=== PATIENT | female | born 1985 | race Caucasian/White ===

== ENCOUNTER 2017-12-01 23:47 | Emergency (ER) ==
[2017-12-02 00:03] VITALS: BP 150/89; TEMP 99.6; BMI 43.7
--- NOTE | 2017-12-02 00:17 | DI ---
EXAM: Three views of the right foot. HISTORY: Injury with lateral foot pain. FINDINGS: The bones are intact with no evidence of fracture. The joint spaces are maintained. There is soft tissue swelling in the forefoot. Impression: No evidence of fracture. Soft tissue swelling as described.
--- NOTE | 2017-12-02 00:23 | ED.PDOC ---
General ED Provider: Dr. JUAN HOOD Chief Complaint: Foot Pain/Injury Stated Complaint: Patient complains of right foot pain does not know how she injured it. Time Seen by Physician: 00:21 Mode of Arrival: Walk-In Information Source: Patient Exam Limitations: No limitations Primary Care Provider: MELODY MCKENZIE Nursing and Triage Documentation Reviewed and Agree: Yes Reviewed sepsis parameters & appropriate labs ordered?: No System Inflammatory Response Syndrome: Pulse >90 BPM Sepsis Protocol: For patient's 13 years and over: Temp is 96.8 and below OR 101 and greater Pulse >90 BPM Resp >20/minute Acutely Altered Mental Status Are patient's symptoms suggestive of a new infection, such as: -Pneumonia -Skin, Soft Tissue -Endocarditis -UTI -Bone, Joint Infection -Implantable Device -Acute Abdominal Infection -Wound Infection -Meningitis -Blood Stream Catheter Infection -Unknown System Inflammatory Response Syndrome: Not Applicable Musculoskeletal Complaint Exam - Ankle/Foot Complaint/Exam Location of Injury: Reports: Right, Foot Mechanism of Injury: Reports: No known trauma Onset/Duration: 1 day Symptoms Are: Reports: Still present Initial Severity: Moderate Current Severity: Mild Location: Reports: Discrete (Lateral aspect of foot ) Character: Reports: Aching, Throbbing Alleviating: Reports: None Aggravating: Reports: Movement Able to Bear Weight: Yes Associated Signs and Symptoms: Reports: Swelling Gout Risk Factors: Reports: None Related Surgical History: Reports: None Lower Extremity Findings: Present: Swelling Achilles Tendon Abnormality: No Ankle/Foot Picture: 1 - tenderness to palpation Differential Diagnosis: Sprain, Strain Review of Systems - Review Of Systems Constitutional: Reports: No symptoms Eyes: Reports: No symptoms Ears, Nose, Mouth, Throat: Reports: No symptoms Respiratory: Reports: No symptoms Cardiac: Reports: No symptoms GI: Reports: No symptoms : Reports: No symptoms Musculoskeletal: Reports: Joint pain Skin: Reports: No symptoms Neurological: Reports: Anxiety Endocrine: Reports: No symptoms Hematologic/Lymphatic: Reports: No symptoms All Other Systems: Reviewed and Negative Past Medical History - Past Medical History Previously Healthy: Yes Endocrine: Reports: DM 2 Cardiovascular: Reports: None Respiratory: Reports: Asthma Hematological: Reports: None Gastrointestinal: Reports: None Genitourinary: Reports: None Neuro/Psych: Reports: None, Anxiety, Depression Musculoskeletal: Reports: None Cancer: Reports: None Last Menstrual Period: 3 months - Surgical History General Surgical History: Reports: Tonsillectomy, Adenoidectomy - Family History Family History: Reports: None - Social History Smoking Status: Never smoker Hx Substance Use: No Alcohol Screening: None - Immunizations Tetanus Shot up to Date: Yes Physical Exam - Physical Exam Appearance: Ill-appearing, Obese ENT: Nose normal, Oropharynx normal Musculoskeletal: Limited ROM Skin: Warm Neurological: Sensation intact Psychiatric: Anxious Interpretation - Radiology Interpretation Radiology Interpretation By: Radiologist Radiology Results: Negative Exam Interpreted: Other (right foot x ray ) Critical Care Note - Critical Care Note Total Time (mins): 0 Course - Course Orders, Labs, Meds: Orders Category Date Time Status SIDRA [ED SIDRA WRAP] .ONCE EMERGENCY 12/02/17 00:46 Active ED CRUTCHES .ONCE EMERGENCY 12/02/17 00:46 Active FOOT, RIGHT 3 VIEWS Stat RADS 12/01/17 23:58 Completed Vital Signs: Temp Pulse Resp BP Pulse Ox 12/01/17 23:49 99.6 F 108 H 18 150/89 H 97 Departure - Departure Time of Disposition: 01:12 Disposition: HOME SELF-CARE Discharge Problem: Right foot sprain Qualifiers: Encounter type: initial encounter Qualified Code(s): S93.601A - Unspecified sprain of right foot, initial encounter Instructions: Foot Sprain (ED) Condition: Fair Pt referred to PMD for follow-up: Yes IPMP verified?: No Additional Instructions: Take Ibuprofen every 8 hours as needed for pain Elevate and Ice the foot. Follow up with PCP as needed Allergies/Adverse Reactions: Allergies No Known Allergies Allergy (Unverified 12/02/17 00:01) Home Medications: Ambulatory Orders Albuterol Sulfate [Proair Hfa] 2 puff IH DIRECTED PRN 12/01/17 Cyclobenzaprine HCl 10 mg PO BEDTIME 12/01/17 Glipizide [Glipizide Xl] 10 mg PO BID 12/01/17 Insulin Glargine,Hum.rec.anlog [Lantus] 40 unit SQ DAILY 12/01/17 Norethindrone [Rebecca-Be] 0.35 mg PO DAILY 12/01/17 Omeprazole Magnesium 20 mg PO DAILY 12/01/17 Disposition Discussed With: Patient, Family
== END 2017-12-02 01:00 | disposition home or self-care (01) ==
LOC: ED 23:47
DX: S93.601A Unspecified sprain of right foot, initial encounter (principal); X50.1XXA Overexertion from prolonged static or awkward postures, initial encounter
CPT/HCPCS: 99282

== ENCOUNTER 2018-03-08 15:04 | Outpatient (CLI) ==
--- NOTE | 2018-03-08 17:00 | MRI ---
EXAM: MRI of the right forefoot without contrast COMPARISON: Right foot radiographs 12/01/2017. HISTORY: Pain along the top of the foot. No recent injury. TECHNIQUE: Multiplanar noncontrast MR images of the right midfoot and forefoot were acquired using a 1.2 Shirley magnet. FINDINGS: There is mild degenerative spurring at the first metatarsophalangeal joint. Minimal degen erative spurring at the interphalangeal joints. Mild degenerative changes of the tarsometatarsal elvia nts with small dorsal osteophytes. Mild degenerative changes at the navicular cuneiform and talonavi cular joints. 3 mm accessory navicular. There is no evidence of an acute fracture or osteomyelitis. There are gel capsules indicating the site of clinical concern along the dorsal aspect of the mid arianna t. There is subcutaneous edema and ill-defined subcutaneous fluid at that level without a focal soft tissue ulcer or drainable fluid collection. No discrete soft tissue mass. Intact Lisfranc ligament fibers are identified without abnormal subluxation at the tarsometatarsal joints. No full-thickness tendon tear or tendon retraction. Small metatarsophalangeal joint effusions. Inte rmetatarsal bursitis involving the third interspace at the level of the metatarsophalangeal joints wi th less pronounced intermetatarsal bursitis along the distal first and second interspaces. IMPRESSION: 1. Subcutaneous edema and ill-defined subcutaneous fluid dorsally without a drainable fluid collecti on or discrete soft tissue mass. 2. No acute osseous injury. Mild degenerative changes of the forefoot and midfoot. 3. Intermetatarsal bursitis. Small metatarsophalangeal joint effusions.
== END 2018-03-08 15:05 | disposition home or self-care (01) ==
LOC: RAD 15:04
PROVIDERS: ATTEND Family Medicine
DX: M79.671 Pain in right foot (principal)

== ENCOUNTER 2018-11-09 11:41 | Emergency (ER) ==
[2018-11-09 11:44] VITALS: BP 143/122; TEMP 97.7; BMI 42.1
--- NOTE | 2018-11-09 12:54 | ED.PDOC ---
General ED Provider: Dr. MELODY KRUSE Chief Complaint: Fever Stated Complaint: Vomiting X 4 days Time Seen by Physician: 12:35 Mode of Arrival: Walk-In Information Source: Patient Exam Limitations: No limitations Primary Care Provider: MELODY MCKENZIE Nursing and Triage Documentation Reviewed and Agree: Yes Does patient meet sepsis criteria?: No System Inflammatory Response Syndrome: Not Applicable Sepsis Protocol: For patient's 13 years and over: Temp is 96.8 and below OR 101 and greater Pulse >90 BPM Resp >20/minute Acutely Altered Mental Status Are patient's symptoms suggestive of a new infection, such as: -Pneumonia -Skin, Soft Tissue -Endocarditis -UTI -Bone, Joint Infection -Implantable Device -Acute Abdominal Infection -Wound Infection -Meningitis -Blood Stream Catheter Infection -Unknown GI Complaint Exam - Vomiting/Diarrhea Complaint/Exam Onset/Duration: 4 days Symptoms Are: Still present Episodes of Vomiting over last 24 Hours: 5 Episodes of Diarrhea Over Last 24 Hours: 0 Initial Severity: Moderate Current Severity: Moderate Character of Vomiting: Reports: Bilious Aggravating: Reports: Liquids Alleviating: Reports: None Associated Signs and Symptoms: Reports: Dizziness, Light-headedness, Cramping Surgical Obstruction Risk Factors: Reports: None Related Surgical History: Reports: None Abdominal Findings: Present: Other (tenderness-non focal) Kussmaul Respirations Present: No Differential Diagnoses: Dehydration, Gastritis, Viral Gastroenteritis, UTI Review of Systems - Review Of Systems Constitutional: Reports: Chills, Weakness Eyes: Reports: No symptoms Ears, Nose, Mouth, Throat: Reports: No symptoms Respiratory: Reports: No symptoms, Cough Cardiac: Reports: No symptoms GI: Reports: Poor appetite, Poor fluid intake, Vomiting : Reports: No symptoms Musculoskeletal: Reports: No symptoms Skin: Reports: No symptoms Neurological: Reports: No symptoms Endocrine: Reports: No symptoms Hematologic/Lymphatic: Reports: No symptoms All Other Systems: Reviewed and Negative Past Medical History - Past Medical History Previously Healthy: Yes Endocrine: Reports: DM 2 Cardiovascular: Reports: None Respiratory: Reports: Asthma Hematological: Reports: None Gastrointestinal: Reports: None Genitourinary: Reports: None Neuro/Psych: Reports: None, Anxiety, Depression Musculoskeletal: Reports: None Cancer: Reports: None Last Menstrual Period: IRREGULAR - Surgical History General Surgical History: Reports: Tonsillectomy, Adenoidectomy - Family History Family History: Reports: None - Social History Smoking Status: Never smoker Hx Substance Use: No Alcohol Screening: None - Immunizations Tetanus Shot up to Date: No Physical Exam - Physical Exam Appearance: Ill-appearing, No pain distress, Well-nourished, Obese Ill-appearing: Mild Pain Distress: Mild Eyes: TIFF, EOMI, Conjunctiva clear ENT: Ears normal, Nose normal, Oropharynx normal Respiratory: Airway patent, Breath sounds clear, Breath sounds equal, Respirations nonlabored Cardiovascular: RRR, Pulses normal, No rub, No murmur GI/: Soft, No masses, Bowel sounds normal, No Organomegaly, Tender (no guarding) Musculoskeletal: Normal strength, ROM intact, No edema, No calf tenderness Skin: Warm, Dry, Normal color Neurological: Sensation intact, Motor intact, Reflexes intact, Cranial nerves intact, Alert, Oriented Psychiatric: Affect appropriate, Mood appropriate Critical Care Note - Critical Care Note Total Time (mins): 60 Course - Course Hematology/Chemistry: 11/09/18 13:13 11/09/18 13:13 Orders, Labs, Meds: Lab Review 11/09/18 11/09/18 11/09/18 13:13 13:13 13:13 WBC 7.70 RBC 5.26 Hgb 14.0 Hct 41.7 MCV 79.3 L MCH 26.6 L MCHC 33.6 RDW Coeff of Baljit 15.2 H Plt Count 215 Immature Gran % (Auto) 0.4 Neut % (Auto) 62.9 Lymph % (Auto) 28.8 Chaves % (Auto) 5.6 Eos % (Auto) 1.9 Baso % (Auto) 0.4 Immature Gran # (Auto) 0.0 Neut # (Auto) 4.8 Lymph # (Auto) 2.2 Chaves # (Auto) 0.4 Eos # (Auto) 0.2 Baso # (Auto) 0.0 Sodium 141.3 Potassium 3.54 Chloride 101.7 Carbon Dioxide 29.6 Anion Gap 13.54 BUN 11.9 Creatinine 0.70 Estimated GFR (MDRD) 98.00 BUN/Creatinine Ratio 17.00 Glucose 186.2 H Hemoglobin A1c 9.34 H Calcium 9.31 Magnesium 1.92 Total Bilirubin 0.65 AST 49.8 H ALT 57.2 H Alkaline Phosphatase 66.8 Total Protein 7.24 Albumin 4.11 Globulin 3.13 Albumin/Globulin Ratio 1.31 Lipase 59.0 Urine Color Urine Clarity Urine pH Ur Specific [place] Urine Protein Urine Glucose (UA) Urine Ketones Urine Blood Urine Nitrite Urine Bilirubin Urine Urobilinogen Ur Leukocyte Esterase Urine Microscopic RBC Ur Squamous Epith Cells Urine Bacteria Urine Test Influ A Molecular Assay Influ B Molecular Assay RSV Antigen 11/09/18 11/09/18 11/09/18 13:35 13:35 15:00 WBC RBC Hgb Hct MCV MCH MCHC RDW Coeff of Baljit Plt Count Immature Gran % (Auto) Neut % (Auto) Lymph % (Auto) Chaves % (Auto) Eos % (Auto) Baso % (Auto) Immature Gran # (Auto) Neut # (Auto) Lymph # (Auto) Chaves # (Auto) Eos # (Auto) Baso # (Auto) Sodium Potassium Chloride Carbon Dioxide Anion Gap BUN Creatinine Estimated GFR (MDRD) BUN/Creatinine Ratio Glucose Hemoglobin A1c Calcium Magnesium Total Bilirubin AST ALT Alkaline Phosphatase Total Protein Albumin Globulin Albumin/Globulin Ratio Lipase Urine Color Yellow Urine Clarity Clear Urine pH 6.0 Ur Specific [place] 1.020 Urine Protein Negative Urine Glucose (UA) Negative Urine Ketones 1+ Urine Blood Trace-lysed Urine Nitrite Negative Urine Bilirubin Negative Urine Urobilinogen 1.0 Ur Leukocyte Esterase Negative Urine Microscopic RBC 0-2 Ur Squamous Epith Cells 0-2 Urine Bacteria Trace Urine Test Influ A Molecular Assay Negative by naat Influ B Molecular Assay Negative by naat RSV Antigen Negative by naat 11/09/18 15:00 WBC RBC Hgb Hct MCV MCH MCHC RDW Coeff of Baljit Plt Count Immature Gran % (Auto) Neut % (Auto) Lymph % (Auto) Chaves % (Auto) Eos % (Auto) Baso % (Auto) Immature Gran # (Auto) Neut # (Auto) Lymph # (Auto) Chaves # (Auto) Eos # (Auto) Baso # (Auto) Sodium Potassium Chloride Carbon Dioxide Anion Gap BUN Creatinine Estimated GFR (MDRD) BUN/Creatinine Ratio Glucose Hemoglobin A1c Calcium Magnesium Total Bilirubin AST ALT Alkaline Phosphatase Total Protein Albumin Globulin Albumin/Globulin Ratio Lipase Urine Color Urine Clarity Urine pH Ur Specific [place] Urine Protein Urine Glucose (UA) Urine Ketones Urine Blood Urine Nitrite Urine Bilirubin Urine Urobilinogen Ur Leukocyte Esterase Urine Microscopic RBC Ur Squamous Epith Cells Urine Bacteria Urine Test Negative Influ A Molecular Assay Influ B Molecular Assay RSV Antigen Orders Category Date Time Status NPO REMINDER: IMAGING ONCE CARE 11/09/18 14:52 Completed IV [ED IV/MEDIPORT/POWERPORT] .ONCE EMERGENCY 11/09/18 12:45 Completed CBC W/ AUTO DIFF Stat LAB 11/09/18 13:13 Completed CMP [COMPREHENSIVE METABOLIC PANEL] Stat LAB 11/09/18 13:13 Completed FLU A & B MOLECULAR [FLU A/B MOLECULAR] Stat LAB 11/09/18 13:35 Completed HEMOGLOBIN A1C Stat LAB 11/09/18 13:13 Completed LIPASE Stat LAB 11/09/18 13:13 Completed MAGNESIUM Stat LAB 11/09/18 13:13 Completed RAPID STREP SCREEN [MOLECULAR GROUP A STREP] Stat LAB 11/09/18 13:35 Completed RSV Stat LAB 11/09/18 13:35 Completed UA [URINALYSIS C & S IF INDICATED] Stat LAB 11/09/18 15:00 Completed URINE Stat LAB 11/09/18 15:00 Completed 0.9 % Sodium Chloride [Saline Flush] MEDS 11/09/18 12:45 Active 1 syr IVF PRN PRN Ondansetron HCl/Pf [Zofran 4 mg/2 ml] MEDS 11/09/18 13:43 Discontinued 4 mg IM ONCE STA Ondansetron HCl/Pf [Zofran 4 mg/2 ml] MEDS 11/09/18 12:48 Discontinued 4 mg IVP ONCE STA Promethazine HCl [Phenergan 25 mg/ml Vial] MEDS 11/09/18 14:52 Discontinued 25 mg IM ONCE STA Sodium Chloride 0.9% [Sodium Chloride] 1,000 ml MEDS 11/09/18 12:47 Discontinued IV BOLUS U/S ABDOMEN RT UPPER QUAD Stat RADS 11/09/18 14:50 Completed Medications Generic Name Dose Route Start Last Admin Trade Name Freq PRN Reason Stop Dose Admin Sodium Chloride 1 syr 11/09/18 12:45 Saline Flush IVF PRN PRN To flush IV Discontinued Medications Generic Name Dose Route Start Last Admin Trade Name Freq PRN Reason Stop Dose Admin Sodium Chloride 1,000 mls @ 1,000 mls/hr 11/09/18 12:47 11/09/18 13:48 Sodium Chloride IV 11/09/18 13:46 Not Given BOLUS STA Ondansetron HCl 4 mg 11/09/18 12:48 11/09/18 13:51 Zofran 4 Mg/2 Ml IVP 11/09/18 12:49 Not Given ONCE STA Ondansetron HCl 4 mg 11/09/18 13:43 11/09/18 13:51 Zofran 4 Mg/2 Ml IM 11/09/18 13:44 4 mg ONCE STA Administration Promethazine HCl 25 mg 11/09/18 14:52 11/09/18 15:18 Phenergan 25 Mg/Ml Vial IM 11/09/18 14:53 25 mg ONCE STA Administration Vital Signs: Temp Pulse Resp BP Pulse Ox 11/09/18 11:41 97.7 F 97 H 18 143/122 H 97 Departure - Departure Time of Disposition: 16:45 Disposition: HOME SELF-CARE Discharge Problem: Gastroenteritis, Nonalcoholic hepatosteatosis, Diabetes mellitus Instructions: Gastroenteritis (ED), Non-Alcoholic Fatty Liver Disease (ED) Condition: Fair Pt referred to PMD for follow-up: Yes IPMP verified?: No Additional Instructions: Clear liquid diet and advance as tolerated Rx meds prn nausea -emesis Off work for 2 days Return to ER as needed Allergies/Adverse Reactions: Allergies pineapple Adverse Reaction (Severe, Verified 11/09/18 11:44) Hives Home Medications: Ambulatory Orders Albuterol Sulfate [Proair Hfa] 2 puff IH DIRECTED PRN 12/01/17 Cyclobenzaprine HCl 10 mg PO BEDTIME 12/01/17 Glipizide [Glipizide Xl] 10 mg PO BID 12/01/17 Insulin Glargine,Hum.rec.anlog [Lantus] 40 unit SQ DAILY 12/01/17 Norethindrone [Rebecca-Be] 0.35 mg PO DAILY 12/01/17 Omeprazole Magnesium 20 mg PO DAILY 12/01/17 Promethazine HCl [Phenergan Tab] 25 mg PO Q6H PRN #20 tablet 11/09/18 Additional Information: 1450: Re evaluated. Unable to obtain venous access. Still having nausea and dry heaves Complaining of pain in RUQ-midepigastrium Scheduling Ultrasound and ordering Phenergan
[2018-11-09] MEDS: SODIUM CHLORIDE 1,000 ML IV STA (13:48)
[2018-11-09] MEDS: ZOFRAN 4 MG/2 ML IVP STA (13:51)
[2018-11-09] MEDS: ZOFRAN 4 MG/2 ML IM STA (13:51)
[2018-11-09] MEDS: PHENERGAN 25 MG/ML VIAL IM STA (15:18)
--- NOTE | 2018-11-09 15:32 | US ---
EXAM: Right upper quadrant abdominal ultrasound. History: Right upper quadrant abdominal pain. Technique: Multiple sonographic images through the abdomen were obtained. Color duplex Doppler was used to interrogate vascular flow. Findings: The liver is diffusely echogenic. No focal liver lesions identified sonographically. Pancreas is un remarkable. No abdominal ascites. There is antegrade flow within the main portal vein. Limited vis ualization of the right kidney demonstrates no evidence for hydronephrosis. No shadowing gallstones. Gallbladder wall is not thickened. Common bile duct is upper limits of normal in caliber measuring 0.6 cm. Impression: 1. Hepatic steatosis. 2. Upper limits of normal common bile duct caliber
[2018-11-09 15:58] LABS: URINE PREGNANCY TEST NEGATIVE (NEGATIVE)
== END 2018-11-09 16:47 | disposition home or self-care (01) ==
LOC: ED 11:41
DX: K52.9 Noninfective gastroenteritis and colitis, unspecified (principal); E11.9 Type 2 diabetes mellitus without complications; K76.0 Fatty (change of) liver, not elsewhere classified; R42 Dizziness and giddiness; R53.1 Weakness; Z79.899 Other long term (current) drug therapy
CPT/HCPCS: 36415; 80053; 81001; 81025; 83036; 83690; 83735; 85025; 87502; 87651; 87801; 96360; 96372; 96375; 99284